=== PATIENT | female | born 1985 | race Caucasian/White ===

== ENCOUNTER 2016-05-14 05:42 | Day surgery (SDC) | payer OTHER ==
--- NOTE | 2016-05-13 18:44 | PREOPHP ---
DATE OF ADMISSION: 05/14/2016 HISTORY OF PRESENT ILLNESS: Ms. Fenton is a 31-year-old 4, para 4, desires permanent surgic al sterilization. PAST MEDICAL HISTORY: None. MEDICATIONS: Oral contraception pills. PAST SURGICAL HISTORY: None. OBSTETRIC HISTORY: x4 vaginal deliveries. GYNECOLOGIC HISTORY: 13, regular 3 to 4 days. Denies any sexually transmitted diseases. Sexually active with 1 partner. SOCIAL HISTORY: Denies any smoking, drugs or alcohol. FAMILY HISTORY: None. PHYSICAL EXAMINATION: HEENT: Within normal. LUNGS: CTA bilateral. CARDIOVASCULAR: S1, S2, regular rhythm. ABDOMEN: Soft, nontender, negative distention. EXTREMITIES: Negative edema. No calf tenderness. VAGINAL: Normal external genitalia. Cervix negative CMT, negative lesions. Adnexa negative mass, nontender. Bilateral. Fundus within normal limits. ASSESSMENT: Multiparity, desires permanent surgical sterilization. PLAN: Consent for laparoscopic bilateral tubal sterilization. Risks, benefits and alternatives exp lained. All questions were answered. Dictated By: SOLO COMBS/AMAURI Conf#: [id number] DID#: [id number]
[2016-05-14] VITALS (13 sets, daily range): BP systolic 99–116; BP diastolic 56–68; PULSE 62–80; RESP 14–45
[~2016-05-14] VITALS: Ht 152.4 cm; Wt 63.2 kg
[~2016-05-14 05:42] MED LIST: LACTATED RINGER'S 1,000 ML IV SCH; NORE0.357
[2016-05-14] MEDS ORDERED: GLYCOPYRROLATE 0.4 MG INJ ONE (07:00)
[2016-05-14] MEDS ORDERED: NEOSTIGMINE 3 MG/3 ML SYRINGE ONE (07:00)
[2016-05-14 07:01] LABS: ADD SCAN DIFF NO
[2016-05-14 07:08] LABS: BASOPHILS % 0.4 % (0.0-2.0); EOSINOPHILS # 0.1 10^3/ul (0.0-0.5); EOSINOPHILS % 1.6 % (0.0-7.0); HEMATOCRIT 34.6 % (37.0-47.0); HEMOGLOBIN 11.7 g/dl (12.0-16.0); LYMPHOCYTES # 2.4 10^3/ul (0.8-2.9); LYMPHOCYTES % 49.3 % (15.0-51.0); MEAN CORPUSCULAR HEMOGLOBIN 30.6 pg (29.0-33.0); MEAN CORPUSCULAR HGB CONC 33.8 g/dl (32.0-37.0); MEAN CORPUSCULAR VOLUME 90.6 fl (82.0-101.0); MEAN PLATELET VOLUME 11.3 fl (7.4-10.4); MONOCYTE # 0.3 10^3/ul (0.3-0.9); MONOCYTES % 6.1 % (0.0-11.0); NEUTROPHIL # 2.1 10^3/ul (1.6-7.5); NEUTROPHILS % 42.4 % (39.0-77.0); PLATELET COUNT 150 10^3/UL (140-415); RED BLOOD COUNT 3.82 10^6/ul (4.20-5.40); RED CELL DISTRIBUTION WIDTH 11.4 % (11.5-14.5); WHITE BLOOD COUNT 4.9 10^3/ul (4.8-10.8)
[2016-05-14] MEDS ORDERED: MIDAZOLAM 1 MG/ML 2 ML INJ ONE (07:27)
[2016-05-14] MEDS ORDERED: ROCURONIUM 50 MG INJ ONE (07:27)
[2016-05-14] MEDS ORDERED: PROPOFOL 20 ML ONE (07:27)
[2016-05-14] MEDS ORDERED: FENTAnyl 50 MCG/ML VIAL ONE (07:27)
[2016-05-14] MEDS ORDERED: ONDANSETRON 4 MG INJ ONE (07:27)
[2016-05-14] MEDS ORDERED: DEXAMETHASONE 4 MG/ML 1 ML INJ ONE (07:28)
[2016-05-14] MEDS ORDERED: CEFAZOLIN 1 GM INJ ONE (07:33)
[2016-05-14] MEDS ORDERED: LIDOCAINE 100 MG SYRINGE ONE (07:33)
[2016-05-14] MEDS ORDERED: morphine (1 MG/ML) 10ML SYRINGE IV PRN ×3 (08:30)
[2016-05-14] MEDS ORDERED: MEPERIDINE 25 MG INJ IV PRN (08:30)
[2016-05-14] MEDS ORDERED: KETOROLAC 30 MG INJ IV ONE (08:30)
[2016-05-14] MEDS ORDERED: DIPHENHYDRAMINE 50 MG INJ IV PRN (08:30)
[2016-05-14] MEDS ORDERED: MIDAZOLAM 1 MG/ML 2 ML INJ IV PRN (08:30)
[2016-05-14] MEDS ORDERED: ONDANSETRON 4 MG INJ IV PRN (08:30)
--- NOTE | 2016-05-14 11:51 | OPR ---
DATE OF OPERATION: 05/14/2016 PRIMARY DIAGNOSIS: Desires permanent sterilization. POSTOPERATIVE DIAGNOSIS: Desires permanent sterilization. OPERATION PERFORMED: Laparoscopic bilateral tubal fulguration. SURGEON: Pavan Tubbs MD CLINICAL LABORATORY MANAGER: None. ANESTHESIA: General. COMPLICATIONS: None. ESTIMATED BLOOD LOSS: 10 mL. INDICATIONS: A 31-year-old, 4, para 4, desires permanent sterilization. Risks, benefits an d procedure discussed with patient including the risk of failure with increased risk of ectopic preg lolly if occurs. FINDINGS: Normal uterus, tubes and ovaries. DESCRIPTION OF PROCEDURE: After explaining the risks, benefits and alternatives, the patient consen t signed in chart, the patient was taken to the operating room where general anesthesia was obtained without difficulty. The patient was then examined under anesthesia and found to have a small antev erted uterus with normal adnexa. She was then placed in a dorsal lithotomy position and prepared an d draped in a sterile fashion. A heavy weighted speculum was then placed in the patient's vagina an d the anterior lip of the cervix was grasped with a single-tooth tenaculum. A HUMI uterine manipula tor was then advanced into the uterus to provide means to manipulate the uterus. The speculum was t hen removed from the vagina. Attention was then turned to the patient's abdomen where a 5 mm skin incision was made in the umbili vita fold. The Veress needle was carefully introduced into the peritoneal cavity at a 45-degree angl e while tented up the abdominal wall. Intraperitoneal placement was confirmed by use of water-fille d syringe, a drop in intra-abdominal pressure with insufflation of CO2 gas. The trocar and sleeve w ere then advanced without difficulty into the abdomen where intra-abdominal placement was confirmed with the laparoscope. Pneumoperitoneum was obtained with 4 liters of CO2 gas and a 5 mm trocar and sleeve were then advanced without difficulty into the abdomen where intra-abdominal placement was co nfirmed by laparoscope. A second skin incision was made 2 cm above the symphysis pubis. A second t rocar and sleeve were then advanced under direct visualization. A survey of the patient's pelvis an d abdomen revealed entirely normal anatomy. At this point, the right fallopian tube was fulgurated at the ampullary and isthmus areas with good blanching. Similarly, the left fallopian tube was fulgurated. At this point, all instruments were removed from the patient's abdomen and the incision was repaired with 3-0 Vicryl in an interrupted f ashion. The HUMI was removed from the patient's vagina. No bleeding was noted. The patient tolera dimas the procedure well. Sponge, lap and needle counts correct x2. The patient was taken to recover y room in stable condition. Dictated By: PAVAN COMBS/AMAURI Conf#: [id number] DID#: [id number]
== END 2016-05-14 10:50 | disposition home or self-care (01) ==
LOC: SDS 05:42
PROVIDERS: ATTEND Obstetrics & Gynecology
DX: Z30.2 Encounter for sterilization (principal)
CPT/HCPCS: 58670; 85025; 86850; 86900; 86901; J1100; J1200; J1885; J2250; J2405; J2710; J3010; Z7512; Z7610; J0690; J2001